=== PATIENT | male | born 1945 | race Two or more races ===

== ENCOUNTER → 2021-04-25 | Outpatient (CLI) | payer OTHER | END | disposition home or self-care (01) | LOC: RAD 15:41 | PROVIDERS: ATTEND Internal Medicine Cardiovascular Disease | DX: I11.9 Hypertensive heart disease without heart failure (principal) ==

== ENCOUNTER → 2021-09-14 | Outpatient (CLI) | payer OTHER | END | disposition home or self-care (01) | LOC: SONOGRAMA 13:00 | PROVIDERS: ATTEND General Practice | DX: E04.2 Nontoxic multinodular goiter (principal) ==

== ENCOUNTER 2021-09-22 08:06 | Outpatient (CLI) | payer OTHER | END 2021-09-22 08:12 | disposition home or self-care (01) | LOC: SONOGRAMA 08:06 | PROVIDERS: ATTEND Specialist | DX: R31.1 Benign essential microscopic hematuria (principal); N40.0 Benign prostatic hyperplasia without lower urinary tract symptoms ==

== ENCOUNTER 2022-04-18 14:16 | Outpatient (CLI) | payer OTHER | END 2022-04-18 14:18 | disposition home or self-care (01) | LOC: TOM 14:16 | PROVIDERS: ATTEND Specialist | DX: N28.1 Cyst of kidney, acquired (principal) ==

== ENCOUNTER 2024-09-30 07:19 | Outpatient (CLI) | payer OTHER | END 2024-09-30 07:22 | disposition home or self-care (01) | LOC: NUCLEAR 07:19 | PROVIDERS: ATTEND Internal Medicine | DX: E11.43 Type 2 diabetes mellitus with diabetic autonomic (poly)neuropathy (principal); N11.0 Nonobstructive reflux-associated chronic pyelonephritis | CPT/HCPCS: 78264; A9541 ==